=== PATIENT | male | born 1975 | race Caucasian/White ===

== ENCOUNTER 2017-03-05 18:28 | Observation (INO) | payer MEDICAID ==
[~2017-03-05] VITALS: Ht 170.2 cm; Wt 83.0 kg
[~2017-03-05 18:28] MED LIST: BUPR200T2 PO; ESCI20TA10 PO; HYDR50TA13 PO; QUET100T PO; QUET400T4 PO
[2017-03-05] MEDS ORDERED: ZIPRASIDONE 20 MG INJ IM ONE ×3 (18:50→19:00)
[2017-03-05 19:04] LABS: BLOOD UREA NITROGEN 17 mg/dL (7-18)
[2017-03-05 19:07] LABS: ASPARTATE AMINO TRANSFERASE 16 U/L (15-37)
[2017-03-05 19:19] LABS: ACETAMINOPHEN < 2 mcg/mL (10-30)
[2017-03-05] MEDS ORDERED: LORazepam 1MG TABLET PO ONE (21:30)
[2017-03-05] MEDS ORDERED: LORazepam 1MG TABLET ONE (22:22)
[2017-03-06 04:21] LABS: DAU SCREEN DISCLAIMER
[2017-03-06] MEDS ORDERED: hydrOXyzine 50MG TABLET PO PRN (04:30)
[2017-03-06] MEDS ORDERED: ACETAMINOPHEN 325 MG TABLET PO PRN (04:30)
[2017-03-06] MEDS ORDERED: ONDANSETRON ODT 4 MG PO PRN (04:30)
[2017-03-06] MEDS ORDERED: ZIPRASIDONE 20 MG INJ IM PRN (04:30)
[2017-03-06] MEDS: CITALOPRAM 20 MG TABLET PO SCH (14:32)
[2017-03-06] MEDS: FOLIC ACID 1 MG TABLET PO SCH (14:32)
[2017-03-06] MEDS: CYANOCOBALAMIN 1,000 MCG TABLET PO SCH (14:32)
[2017-03-06] MEDS: MULTIVITAMIN 1 TABLET PO SCH (14:32)
[2017-03-06] MEDS ORDERED: THIAMINE 100MG TABLET ONE (14:43)
[2017-03-06] MEDS: BUPROPION SR 150 MG TABLET PO SCH (15:07)
[2017-03-06] MEDS: THIAMINE 100MG TABLET PO SCH (15:07)
[2017-03-06] MEDS: QUETIAPINE 25MG TABLET PO SCH (22:08)
[2017-03-07] MEDS: MULTIVITAMIN 1 TABLET PO SCH (09:00)
[2017-03-07] MEDS: BUPROPION SR 150 MG TABLET PO SCH (09:00)
[2017-03-07] MEDS: FOLIC ACID 1 MG TABLET PO SCH (09:00)
[2017-03-07] MEDS: CYANOCOBALAMIN 1,000 MCG TABLET PO SCH (09:00)
[2017-03-07] MEDS: CITALOPRAM 20 MG TABLET PO SCH (09:00)
[2017-03-07 16:13] VITALS: BP 133/86
[2017-03-07 19:33] VITALS: BP 151/100
[2017-03-07 20:25] VITALS: BP 141/80
[2017-03-07] MEDS: QUETIAPINE 25MG TABLET PO SCH (20:27)
[2017-03-07] MEDS: LORazepam 1MG TABLET PO PRN (20:27)
[2017-03-07] MEDS: THIAMINE 100MG TABLET PO SCH (20:27)
[2017-03-08 08:24] VITALS: BP 120/76
[2017-03-08] MEDS: BUPROPION SR 150 MG TABLET PO SCH (09:58)
[2017-03-08] MEDS: THIAMINE 100MG TABLET PO SCH (09:58)
[2017-03-08] MEDS: MULTIVITAMIN 1 TABLET PO SCH (09:58)
[2017-03-08] MEDS: FOLIC ACID 1 MG TABLET PO SCH (09:58)
[2017-03-08] MEDS: CYANOCOBALAMIN 1,000 MCG TABLET PO SCH (09:59)
[2017-03-08] MEDS: CITALOPRAM 20 MG TABLET PO SCH (10:01)
[2017-03-08 19:50] VITALS: BP 139/83
[2017-03-08] MEDS: QUETIAPINE 25MG TABLET PO SCH (20:42)
[2017-03-08] MEDS: LORazepam 1MG TABLET PO PRN (20:42)
[2017-03-09] MEDS: THIAMINE 100MG TABLET PO SCH (08:02)
[2017-03-09] MEDS: CITALOPRAM 20 MG TABLET PO SCH (08:02)
[2017-03-09] MEDS: MULTIVITAMIN 1 TABLET PO SCH (08:02)
[2017-03-09] MEDS: FOLIC ACID 1 MG TABLET PO SCH (08:02)
[2017-03-09] MEDS: CYANOCOBALAMIN 1,000 MCG TABLET PO SCH (08:03)
[2017-03-09] MEDS: BUPROPION SR 150 MG TABLET PO SCH (08:03)
[2017-03-09 08:26] VITALS: BP 118/75
[2017-03-09 20:02] VITALS: BP 153/87
[2017-03-09] MEDS: LORazepam 1MG TABLET PO PRN (20:24)
[2017-03-09] MEDS: QUETIAPINE 100MG TABLET PO SCH (20:24)
[2017-03-09] MEDS ORDERED: QUETIAPINE 25MG TABLET PO SCH (21:00)
[2017-03-09 23:53] VITALS: BP 110/71
[2017-03-10] MEDS: FOLIC ACID 1 MG TABLET PO SCH (07:58)
[2017-03-10] MEDS: THIAMINE 100MG TABLET PO SCH (07:58)
[2017-03-10] MEDS: CYANOCOBALAMIN 1,000 MCG TABLET PO SCH (07:59)
[2017-03-10] MEDS: MULTIVITAMIN 1 TABLET PO SCH (07:59)
[2017-03-10] MEDS: BUPROPION SR 150 MG TABLET PO SCH (07:59)
[2017-03-10] MEDS: CITALOPRAM 20 MG TABLET PO SCH (07:59)
[2017-03-10 08:14] VITALS: BP 124/78
[2017-03-10 19:54] VITALS: BP 123/85
[2017-03-10] MEDS: LORazepam 1MG TABLET PO PRN (20:43)
[2017-03-10] MEDS: QUETIAPINE 100MG TABLET PO SCH (20:43)
[2017-03-11] MEDS: FOLIC ACID 1 MG TABLET PO SCH (07:44)
[2017-03-11] MEDS: THIAMINE 100MG TABLET PO SCH (07:44)
[2017-03-11] MEDS: MULTIVITAMIN 1 TABLET PO SCH (07:44)
[2017-03-11] MEDS: BUPROPION SR 150 MG TABLET PO SCH (07:44)
[2017-03-11] MEDS: CYANOCOBALAMIN 1,000 MCG TABLET PO SCH (07:45)
[2017-03-11] MEDS: CITALOPRAM 20 MG TABLET PO SCH (07:45)
[2017-03-11 08:33] VITALS: BP 112/72
== END 2017-03-11 12:53 ==
LOC: ED 20:24 → SUATTDRO 03-06 04:11 → EDIP 03-06 04:16 → 3E 03-07 16:10
DX: F23 Brief psychotic disorder (principal); R45.851 Suicidal ideations; G93.40 Encephalopathy, unspecified; F31.9 Bipolar disorder, unspecified; F10.10 Alcohol abuse, uncomplicated; F17.200 Nicotine dependence, unspecified, uncomplicated; F15.10 Other stimulant abuse, uncomplicated; F12.10 Cannabis abuse, uncomplicated
CPT/HCPCS: 36415; 80053; 80307; 80329; 83735; 85025; 96372; 99285; G0378; J3486; G0480

== ENCOUNTER 2017-06-23 00:01 | Observation (INO) | payer MEDICAID ==
[~2017-06-23] VITALS: Ht 170.2 cm; Wt 76.6 kg
[2017-06-23 00:40] LABS: HEMATOCRIT 46.8 % (39.2-51.8); HEMOGLOBIN 16.2 g/dL (13.7-18.0)
[2017-06-23 00:51] LABS: ASPARTATE AMINO TRANSFERASE 18 U/L (15-37); BLOOD UREA NITROGEN 25 mg/dL (7-18)
[2017-06-23 00:52] LABS: DAU SCREEN DISCLAIMER
[2017-06-23 00:53] LABS: ACETAMINOPHEN < 2 mcg/mL (10-30)
[2017-06-23] MEDS ORDERED: DOCUSATE 100 MG CAPSULE PO PRN (07:30)
[2017-06-23] MEDS ORDERED: LORazepam 2 MG/ML, 1ML IM PRN ×2 (07:30)
[2017-06-23] MEDS ORDERED: ONDANSETRON ODT 4 MG PO PRN (07:30)
[2017-06-23] MEDS ORDERED: BISACODYL 10 MG SUPP PR PRN (07:30)
[2017-06-23] MEDS ORDERED: NICOTINE 21 MG/24 HR PATCH.TD24 TD SCH (07:30)
[2017-06-23] MEDS ORDERED: POLYETHYLENE GLYCOL 17 GM PACKET PO PRN (07:30)
[2017-06-23] MEDS ORDERED: ACETAMINOPHEN 325 MG TABLET PO PRN (07:30)
[2017-06-23] MEDS ORDERED: ESCITALOPRAM OXALATE 20 MG PO SCH (09:00)
[2017-06-23 09:03] VITALS: BP 135/77
[2017-06-23] MEDS: MULTIVITAMIN 1 TABLET PO SCH (09:59)
[2017-06-23] MEDS: CYANOCOBALAMIN 1,000 MCG TABLET PO SCH (10:00)
[2017-06-23] MEDS: FOLIC ACID 1 MG TABLET PO SCH (10:00)
[2017-06-23] MEDS: CITALOPRAM 20 MG TABLET PO SCH (16:08)
[2017-06-23] MEDS ORDERED: FLU VACC QS2017-18 (36MOS+) UP/PF 0.5 ML IM-VACC ONE (18:00)
[2017-06-23 19:30] VITALS: BP 151/84
[2017-06-23] MEDS ORDERED: QUETIAPINE 100MG TABLET ONE (19:31)
[2017-06-23] MEDS: QUETIAPINE 100MG TABLET PO SCH (20:30)
[2017-06-24 08:32] VITALS: BP 147/98
[2017-06-24] MEDS: FOLIC ACID 1 MG TABLET PO SCH (08:33)
[2017-06-24] MEDS: MULTIVITAMIN 1 TABLET PO SCH (08:33)
[2017-06-24] MEDS: NICOTINE 21 MG/24 HR PATCH.TD24 TD SCH (08:33)
[2017-06-24] MEDS: CYANOCOBALAMIN 1,000 MCG TABLET PO SCH (08:33)
[2017-06-24] MEDS: CITALOPRAM 20 MG TABLET PO SCH (08:38)
[2017-06-24 19:38] VITALS: BP 153/81
[2017-06-24] MEDS: LORazepam 1MG TABLET PO PRN (20:53)
[2017-06-24] MEDS: QUETIAPINE 100MG TABLET PO SCH (20:54)
[2017-06-25 08:00] VITALS: BP 131/83
[2017-06-25] MEDS: CITALOPRAM 20 MG TABLET PO SCH (09:58)
[2017-06-25] MEDS: FOLIC ACID 1 MG TABLET PO SCH (09:58)
[2017-06-25] MEDS: CYANOCOBALAMIN 1,000 MCG TABLET PO SCH (09:58)
[2017-06-25] MEDS: NICOTINE 21 MG/24 HR PATCH.TD24 TD SCH (09:58)
[2017-06-25] MEDS: MULTIVITAMIN 1 TABLET PO SCH (09:58)
[2017-06-25 19:20] VITALS: BP 126/76
[2017-06-25] MEDS: LORazepam 1MG TABLET PO PRN (19:41)
[2017-06-25] MEDS: QUETIAPINE 100MG TABLET PO SCH (20:05)
[2017-06-26 08:08] VITALS: BP 136/87
[2017-06-26] MEDS: FOLIC ACID 1 MG TABLET PO SCH (08:45)
[2017-06-26] MEDS: CYANOCOBALAMIN 1,000 MCG TABLET PO SCH (08:45)
[2017-06-26] MEDS: MULTIVITAMIN 1 TABLET PO SCH (08:45)
[2017-06-26] MEDS: CITALOPRAM 20 MG TABLET PO SCH (08:45)
[2017-06-26] MEDS: NICOTINE 21 MG/24 HR PATCH.TD24 TD SCH (08:46)
[2017-06-26] MEDS: THIAMINE 100MG TABLET PO SCH (13:39)
[2017-06-26] MEDS: LORazepam 1MG TABLET PO PRN ×2 (14:07→20:07)
[2017-06-26 19:55] VITALS: BP 133/83
[2017-06-26] MEDS: QUETIAPINE 100MG TABLET PO SCH (19:57)
[2017-06-27 08:00] VITALS: BP 119/86
[2017-06-27] MEDS: MULTIVITAMIN 1 TABLET PO SCH (08:13)
[2017-06-27] MEDS: CITALOPRAM 20 MG TABLET PO SCH (08:13)
[2017-06-27] MEDS: FOLIC ACID 1 MG TABLET PO SCH (08:13)
[2017-06-27] MEDS: THIAMINE 100MG TABLET PO SCH (08:13)
[2017-06-27] MEDS: NICOTINE 21 MG/24 HR PATCH.TD24 TD SCH (08:14)
[2017-06-27] MEDS: CYANOCOBALAMIN 1,000 MCG TABLET PO SCH (09:37)
[2017-06-27] MEDS: LORazepam 1MG TABLET PO PRN ×2 (09:44→20:21)
[2017-06-27 19:20] VITALS: BP 126/83
[2017-06-27] MEDS: QUETIAPINE 100MG TABLET PO SCH (20:10)
[2017-06-28 07:50] VITALS: BP 141/83
[2017-06-28] MEDS: THIAMINE 100MG TABLET PO SCH (08:12)
[2017-06-28] MEDS: FOLIC ACID 1 MG TABLET PO SCH (08:12)
[2017-06-28] MEDS: MULTIVITAMIN 1 TABLET PO SCH (08:12)
[2017-06-28] MEDS: CITALOPRAM 20 MG TABLET PO SCH (08:12)
[2017-06-28] MEDS: NICOTINE 21 MG/24 HR PATCH.TD24 TD SCH (08:13)
[2017-06-28] MEDS: CYANOCOBALAMIN 1,000 MCG TABLET PO SCH (10:27)
[2017-06-28] MEDS: LORazepam 1MG TABLET PO PRN ×2 (11:16→20:29)
[2017-06-28] MEDS: QUETIAPINE 100MG TABLET PO SCH (20:30)
[2017-06-28 20:32] VITALS: BP 141/91
[2017-06-29 07:32] VITALS: BP 123/79
[2017-06-29] MEDS: CYANOCOBALAMIN 1,000 MCG TABLET PO SCH (08:55)
[2017-06-29] MEDS: CITALOPRAM 20 MG TABLET PO SCH (08:55)
[2017-06-29] MEDS: FOLIC ACID 1 MG TABLET PO SCH (08:55)
[2017-06-29] MEDS: THIAMINE 100MG TABLET PO SCH (08:55)
[2017-06-29] MEDS: NICOTINE 21 MG/24 HR PATCH.TD24 TD SCH (08:55)
[2017-06-29] MEDS: MULTIVITAMIN 1 TABLET PO SCH (08:55)
[2017-06-29] MEDS: LORazepam 1MG TABLET PO PRN ×2 (09:31→20:15)
[2017-06-29 19:10] VITALS: BP 127/86
[2017-06-29] MEDS: QUETIAPINE 100MG TABLET PO SCH (20:11)
[2017-06-30 07:58] VITALS: BP 123/84
[2017-06-30] MEDS: CITALOPRAM 20 MG TABLET PO SCH (08:33)
[2017-06-30] MEDS: MULTIVITAMIN 1 TABLET PO SCH (08:33)
[2017-06-30] MEDS: THIAMINE 100MG TABLET PO SCH (08:33)
[2017-06-30] MEDS: NICOTINE 21 MG/24 HR PATCH.TD24 TD SCH (08:34)
[2017-06-30] MEDS: LORazepam 1MG TABLET PO PRN ×2 (08:51→20:35)
[2017-06-30] MEDS ORDERED: DOCUSATE 100 MG CAPSULE PO PRN (16:00)
[2017-06-30] MEDS ORDERED: POLYETHYLENE GLYCOL 17 GM PACKET PO PRN (16:00)
[2017-06-30] MEDS ORDERED: BISACODYL 10 MG SUPP PR PRN (16:00)
[2017-06-30] MEDS ORDERED: LORazepam 2 MG/ML, 1ML IM PRN ×2 (16:00)
[2017-06-30] MEDS ORDERED: ONDANSETRON ODT 4 MG PO PRN (16:00)
[2017-06-30] MEDS ORDERED: ACETAMINOPHEN 325 MG TABLET PO PRN (16:00)
[2017-06-30 20:02] VITALS: BP 135/88
[2017-06-30] MEDS: QUETIAPINE 100MG TABLET PO SCH (20:35)
[2017-07-01 08:10] VITALS: BP 130/85
[2017-07-01] MEDS: NICOTINE 21 MG/24 HR PATCH.TD24 TD SCH (08:41)
[2017-07-01] MEDS: CITALOPRAM 20 MG TABLET PO SCH (08:41)
[2017-07-01] MEDS: MULTIVITAMIN 1 TABLET PO SCH (08:41)
[2017-07-01] MEDS: THIAMINE 100MG TABLET PO SCH (08:41)
[2017-07-01] MEDS: LORazepam 1MG TABLET PO PRN ×2 (09:05→20:11)
[2017-07-01 19:23] VITALS: BP 127/82
[2017-07-01] MEDS: QUETIAPINE 100MG TABLET PO SCH (20:11)
== END 2017-07-02 02:17 ==
LOC: ED 00:54 → EDIP 06:32 → 3E 08:41
PROVIDERS: ADMIT Hospitalist; ATTEND Family Medicine
DX: F31.9 Bipolar disorder, unspecified (principal); D72.829 Elevated white blood cell count, unspecified; F10.239 Alcohol dependence with withdrawal, unspecified; F12.90 Cannabis use, unspecified, uncomplicated; R45.851 Suicidal ideations; F17.200 Nicotine dependence, unspecified, uncomplicated; Z23 Encounter for immunization; Z59.0 Homelessness; Z91.19 Patient's noncompliance with other medical treatment and regimen
CPT/HCPCS: 36415; 80053; 80307; 80329; 85025; 90471; 90686; 99285; G0378; G0479; G0480

== ENCOUNTER 2017-09-13 22:25 | Emergency (ER) | payer MEDICAID ==
[~2017-09-13] VITALS: Ht 185.4 cm; Wt 89.0 kg
[2017-09-13] MEDS ORDERED: ZIPRASIDONE 20 MG INJ IM ONE ×2 (22:44→23:00)
[2017-09-13 23:32] LABS: BASOPHILS # (AUTO) 0.05 x10^3/uL (0-0.1); BASOPHILS % (AUTO) 1 % (0-1); EOSINOPHILS # (AUTO) 0.18 x10^3/uL (0-0.4); EOSINOPHILS % (AUTO) 3 % (1-7); LYMPHOCYTES # (AUTO) 2.83 x10^3/uL (1-3.4); LYMPHOCYTES % (AUTO) 45 % (22-44); MD NO; MEAN CORPUSCULAR HEMOGLOBIN 30.4 pg (27.5-34.5); MEAN CORPUSCULAR HGB CONC 33.7 g/dL (33.2-36.2); MEAN PLATELET VOLUME 8.9 fL (7.4-10.4); MONOCYTES # (AUTO) 0.31 x10^3/uL (0.2-0.8); MONOCYTES % (AUTO) 5 % (2-9); NEUTROPHILS # (AUTO) 2.94 x10^3/uL (1.8-6.8); NEUTROPHILS % (AUTO) 47 % (42-75); PLATELET COUNT 264 x10^3/uL (130-400); RED CELL DISTRIBUTION WIDTH 13.6 % (9.4-14.8)
[2017-09-13 23:41] LABS: ALBUMIN 3.5 g/dL (3.4-5.0); ANION GAP 10 mmol/L (5-15); CALCIUM 8.4 mg/dL (8.5-10.1); CHLORIDE 110 mmol/L (98-107)
[2017-09-13 23:42] LABS: SALICYLATE LEVEL < 1.7 mg/dL (2.8-20.0)
[2017-09-13 23:44] LABS: ACETAMINOPHEN < 2 mcg/mL (10-30); ALANINE AMINOTRANSFERASE 26 U/L (12-78); ALKALINE PHOSPHATASE 71 U/L (45-117); BILIRUBIN,TOTAL 0.3 mg/dL (0.2-1.0); CREATININE 0.75 mg/dL (0.7-1.3); TOTAL PROTEIN 7.3 g/dL (6.4-8.2)
[2017-09-14] MEDS ORDERED: ZIPRASIDONE 20 MG INJ IM ONE ×2 (05:07→05:30)
[2017-09-14 09:44] VITALS: BP 132/88
[2017-09-14 10:30] LABS: MICROSCOPIC NOT IND
[2017-09-14 10:34] LABS: CULTURE INDICATED? NO
[2017-09-14 10:42] LABS: AMPHETAMINE SCREEN, URINE Positive (Negative); BARBITURATE SCREEN, URINE Negative (Negative); BENZODIAZEPINE SCREEN, URINE Negative (Negative); CANNABINOID SCREEN, URINE Positive (Negative); COCAINE SCREEN, URINE Negative (Negative); METHADONE SCREEN, URINE Negative (Negative); OPIATE SCREEN, URINE Negative (Negative)
== END 2017-09-14 11:18 | disposition home or self-care (01) ==
LOC: ED 22:28
DX: F32.0 Major depressive disorder, single episode, mild (principal); R45.851 Suicidal ideations; F20.9 Schizophrenia, unspecified
CPT/HCPCS: 36415; 80053; 80307; 80329; 81003; 85025; 86703; 86705; 86706; 86803; 87340; 87899; 93005; 96372; 99285; J3486; G0435; G0479; G0480

== ENCOUNTER 2017-10-29 00:25 | Observation (INO) | payer MEDICAID ==
[~2017-10-29] VITALS: Ht 170.2 cm; Wt 78.3 kg
[2017-10-29 01:15] LABS: ALBUMIN 3.3 g/dL (3.4-5.0); ANION GAP 6 mmol/L (5-15); CALCIUM 8.2 mg/dL (8.5-10.1); CHLORIDE 104 mmol/L (98-107)
[2017-10-29 01:18] LABS: ACETAMINOPHEN < 2 mcg/mL (10-30); ALANINE AMINOTRANSFERASE 22 U/L (12-78); ALKALINE PHOSPHATASE 64 U/L (45-117); BILIRUBIN,TOTAL 0.3 mg/dL (0.2-1.0); SALICYLATE LEVEL < 1.7 mg/dL (2.8-20.0)
[2017-10-29 01:19] LABS: BASOPHILS # (AUTO) 0.03 x10^3/uL (0-0.1); BASOPHILS % (AUTO) 1 % (0-1); EOSINOPHILS # (AUTO) 0.29 x10^3/uL (0-0.4); EOSINOPHILS % (AUTO) 4 % (1-7); LYMPHOCYTES # (AUTO) 2.33 x10^3/uL (1-3.4); LYMPHOCYTES % (AUTO) 31 % (22-44); MD NO; MEAN CORPUSCULAR HEMOGLOBIN 30.9 pg (27.5-34.5); MEAN CORPUSCULAR HGB CONC 34.5 g/dL (33.2-36.2); MEAN CORPUSCULAR VOLUME 89.5 fL (81-97); MEAN PLATELET VOLUME 9.4 fL (7.4-10.4); MONOCYTES # (AUTO) 0.42 x10^3/uL (0.2-0.8); MONOCYTES % (AUTO) 6 % (2-9); NEUTROPHILS # (AUTO) 4.37 x10^3/uL (1.8-6.8); NEUTROPHILS % (AUTO) 59 % (42-75); PLATELET COUNT 255 x10^3/uL (130-400); RED BLOOD COUNT 4.99 x10^6/uL (4.38-5.82)
[2017-10-29 02:40] LABS: AMPHETAMINE SCREEN, URINE Negative (Negative); BARBITURATE SCREEN, URINE Negative (Negative); BENZODIAZEPINE SCREEN, URINE Negative (Negative); CANNABINOID SCREEN, URINE Positive (Negative); COCAINE SCREEN, URINE Negative (Negative); METHADONE SCREEN, URINE Negative (Negative); OPIATE SCREEN, URINE Negative (Negative)
[2017-10-29] MEDS ORDERED: ONDANSETRON ODT 4 MG PO PRN (04:30)
[2017-10-29] MEDS ORDERED: LABETALOL 5MG/ML, 20ML IVPush PRN (04:30)
[2017-10-29] MEDS ORDERED: TEMAZEPAM 15 MG CAPSULE PO PRN (04:30)
[2017-10-29] MEDS ORDERED: ACETAMINOPHEN 325 MG TABLET PO PRN (04:30)
[2017-10-29] MEDS ORDERED: LORazepam 1MG TABLET PO PRN (04:30)
[2017-10-29] MEDS ORDERED: NICOTINE 21 MG/24 HR PATCH.TD24 TD SCH (04:30)
[2017-10-29] MEDS ORDERED: hydrOXyzine 50MG TABLET PO PRN (04:30)
[2017-10-29] MEDS ORDERED: FAMOTIDINE 20 MG TABLET PO SCH (09:00)
[2017-10-29] MEDS ORDERED: CITALOPRAM 20 MG TABLET PO SCH (09:00)
[2017-10-29] MEDS ORDERED: OLANZAPINE 10 MG TABLET PO SCH (09:00)
[2017-10-29] MEDS ORDERED: OLANZAPINE 10 MG TABLET ONE (09:57)
[2017-10-29] MEDS ORDERED: FAMOTIDINE 20 MG TABLET ONE (09:57)
[2017-10-29 17:08] VITALS: BP 139/78
== END 2017-10-29 18:16 ==
LOC: ED 04:25 → EDIP 04:29
PROVIDERS: ADMIT Internal Medicine; ATTEND Internal Medicine
DX: R45.851 Suicidal ideations (principal); F32.9 Major depressive disorder, single episode, unspecified; F20.9 Schizophrenia, unspecified; F15.90 Other stimulant use, unspecified, uncomplicated; F17.210 Nicotine dependence, cigarettes, uncomplicated
CPT/HCPCS: 36415; 80053; 80307; 80329; 85025; 99285; G0378; G0480

== ENCOUNTER 2017-11-09 03:25 | Emergency (ER) | payer MEDICAID ==
[~2017-11-09] VITALS: Ht 167.6 cm; Wt 87.1 kg
[2017-11-09 03:26] VITALS: BP 136/88
[2017-11-09] MEDS ORDERED: CITA40TA12 PO (11:07)
== END 2017-11-09 03:51 | disposition left against medical advice (07) ==
LOC: ED 03:45
DX: R45.851 Suicidal ideations (principal); Z53.21 Procedure and treatment not carried out due to patient leaving prior to being seen by health care provider

== ENCOUNTER 2017-11-09 08:19 | Emergency (ER) | payer MEDICAID ==
[~2017-11-09] VITALS: Ht 167.6 cm; Wt 84.1 kg
[2017-11-09 08:21] VITALS: BP 138/84
[2017-11-09 09:16] LABS: BASOPHILS # (AUTO) 0.03 x10^3/uL (0-0.1); BASOPHILS % (AUTO) 1 % (0-1); EOSINOPHILS # (AUTO) 0.29 x10^3/uL (0-0.4); EOSINOPHILS % (AUTO) 4 % (1-7); LYMPHOCYTES # (AUTO) 1.56 x10^3/uL (1-3.4); LYMPHOCYTES % (AUTO) 24 % (22-44); MD NO; MEAN CORPUSCULAR HEMOGLOBIN 30.7 pg (27.5-34.5); MEAN CORPUSCULAR VOLUME 90.1 fL (81-97); MEAN PLATELET VOLUME 9.5 fL (7.4-10.4); MONOCYTES # (AUTO) 0.54 x10^3/uL (0.2-0.8); MONOCYTES % (AUTO) 8 % (2-9); NEUTROPHILS # (AUTO) 4.18 x10^3/uL (1.8-6.8); NEUTROPHILS % (AUTO) 63 % (42-75); PLATELET COUNT 257 x10^3/uL (130-400); RED BLOOD COUNT 4.33 x10^6/uL (4.38-5.82); RED CELL DISTRIBUTION WIDTH 13.2 % (9.4-14.8)
[2017-11-09 09:27] LABS: ALANINE AMINOTRANSFERASE 63 U/L (12-78); ALBUMIN 3.2 g/dL (3.4-5.0); ANION GAP 8 mmol/L (5-15); CALCIUM 7.8 mg/dL (8.5-10.1); CHLORIDE 108 mmol/L (98-107); CREATININE 0.91 mg/dL (0.7-1.3)
[2017-11-09 09:32] LABS: SALICYLATE LEVEL < 1.7 mg/dL (2.8-20.0)
[2017-11-09 09:35] LABS: ACETAMINOPHEN < 2 mcg/mL (10-30); ALKALINE PHOSPHATASE 67 U/L (45-117); BILIRUBIN,TOTAL 0.5 mg/dL (0.2-1.0); TOTAL PROTEIN 6.5 g/dL (6.4-8.2)
[2017-11-09 10:59] LABS: AMPHETAMINE SCREEN, URINE Positive (Negative); BARBITURATE SCREEN, URINE Negative (Negative); BENZODIAZEPINE SCREEN, URINE Negative (Negative); CANNABINOID SCREEN, URINE Positive (Negative); COCAINE SCREEN, URINE Negative (Negative); METHADONE SCREEN, URINE Negative (Negative); OPIATE SCREEN, URINE Negative (Negative)
[2017-11-09] MEDS ORDERED: CITA40TA12 PO (11:07)
== END 2017-11-09 12:29 | disposition home or self-care (01) ==
LOC: ED 09:06
DX: R45.851 Suicidal ideations (principal); F32.9 Major depressive disorder, single episode, unspecified; F10.20 Alcohol dependence, uncomplicated; F15.10 Other stimulant abuse, uncomplicated; F20.9 Schizophrenia, unspecified; Z76.0 Encounter for issue of repeat prescription; Z72.89 Other problems related to lifestyle; Z72.0 Tobacco use
CPT/HCPCS: 36415; 80053; 80307; 80329; 85025; 93005; 99285; G0480

== ENCOUNTER 2020-09-10 15:15 | Emergency (ER) | payer MEDICAID, OTHER ==
[~2020-09-10] VITALS: Ht 170.2 cm; Wt 72.0 kg
[~2020-09-10 15:15] MED LIST changes: +CITA40TA12 PO; -HYDR50TA13 PO; +HYDR50TA99 PO
--- NOTE | 2020-09-10 15:36 | NUR ---
PT BIB EMS FOR RIGHT HAND SWELLING AND PAIN. PT DENIES TRAUMA. PT POOR HISTORIAN
[2020-09-10 16:21] LABS: BASOPHILS % (AUTO) 0 % (0-1); EOSINOPHILS % (AUTO) 0 % (1-7); LYMPHOCYTES % (AUTO) 7 % (22-44); MEAN CORPUSCULAR HEMOGLOBIN 30.2 pg (27.5-34.5); MEAN CORPUSCULAR HGB CONC 34.5 g/dL (33.2-36.2); MEAN PLATELET VOLUME 9.4 fL (7.4-10.4); MONOCYTES % (AUTO) 5 % (2-9); NEUTROPHILS % (AUTO) 88 % (42-75); PLATELET COUNT 285 x10^3/uL (130-400); RED BLOOD COUNT 4.76 x10^6/uL (4.38-5.82); RED CELL DISTRIBUTION WIDTH 13.6 % (9.4-14.8)
[2020-09-10 16:26] LABS: ALBUMIN 3.7 g/dL (3.4-5.0); ANION GAP 8 mmol/L (5-15); CALCIUM 8.6 mg/dL (8.5-10.1); CHLORIDE 104 mmol/L (98-107); CREATININE 1.16 mg/dL (0.7-1.3)
[2020-09-10 16:44] LABS: MD SCAN
[2020-09-10] MEDS ORDERED: CEFTRIAXONE 1,000 MG IM ONE (17:00)
[2020-09-10] MEDS ORDERED: CEFTRIAXONE 1,000 MG ONE (17:11)
[2020-09-10 17:19] VITALS: BP 110/86
== END 2020-09-10 18:54 ==
LOC: ED 17:27
DX: S60.222A Contusion of left hand, initial encounter (principal); L03.114 Cellulitis of left upper limb; W22.8XXA Striking against or struck by other objects, initial encounter; Y93.89 Activity, other specified; Y92.410 Unspecified street and highway as the place of occurrence of the external cause; Y99.8 Other external cause status
CPT/HCPCS: 29125; 36415; 73130; 80048; 82040; 85025; 96372; 99284; J0696

== ENCOUNTER 2020-09-13 18:20 | Emergency (ER) | payer MEDICAID ==
[~2020-09-13] VITALS: Ht 167.6 cm; Wt 71.0 kg
[2020-09-13 18:44] VITALS: BP 159/109
[2020-09-13] MEDS ORDERED: LIDOCAINE-MPF 1%, 5ML ONE (19:22)
[2020-09-13] MEDS ORDERED: CEFTRIAXONE 1,000 MG IM ONE (20:00)
[2020-09-13] MEDS ORDERED: CEFTRIAXONE 1,000 MG ONE (20:28)
--- NOTE | 2020-09-13 20:39 | NUR ---
PT EDUCATED THAT HE COULD LOSE HIS HAND IF HE DOESNT GET THE MEDICINE. PT STATES "MY HAND WILL BE FINE"
--- NOTE | 2020-09-13 20:39 | NUR ---
PT REFUSING ROCEHPIN INJECTION. "NO, THATS TOO PAINFUL. IM JUST GOING TO LEAVE. I HAVE TO GO. IM LEAVING"
== END 2020-09-13 20:57 | disposition home or self-care (01) ==
LOC: ED 18:50
DX: S60.512A Abrasion of left hand, initial encounter (principal); L03.114 Cellulitis of left upper limb; Z87.891 Personal history of nicotine dependence; X58.XXXA Exposure to other specified factors, initial encounter; Y93.89 Activity, other specified; Y92.098 Other place in other non-institutional residence as the place of occurrence of the external cause; Y99.8 Other external cause status
CPT/HCPCS: 10060; 99283; J0696

== ENCOUNTER 2021-04-26 17:59 | Emergency (ER) | payer MEDICAID ==
[~2021-04-26] VITALS: Ht 170.2 cm; Wt 88.0 kg
[2021-04-26 18:04] VITALS: BP 153/71
--- NOTE | 2021-04-26 18:30 | NUR ---
architecture analyst completed. Pt with clean, dry dsg to L forearm and thumb placed a couple of hours ago by family per pt. Pt with flat, somewhat argumentative affect, avoids eye contact, healing scab to R side of face at [place] noted, and pt asking why dsg would have to come off for assessment and why can't we just give him abx. Pt education on need for PA at minimum to assess wound to ensure no further cleaning or care is needed in addition to possible abx. Pt was not thrilled with this but agreed to have him look. Son is at bedside with pt at this time.
--- NOTE | 2021-04-26 18:34 | NUR ---
PA notified to call RN to bedside for wound assessment when he goes in for assessment.
[2021-04-26] MEDS ORDERED: L.E.T SOLUTION TP ONE ×2 (18:45→19:00)
--- NOTE | 2021-04-26 19:15 | NUR ---
Wound irrigated, pat dry, and steristrips applied as ordered. Covered with gauze roll per pt request.
== END 2021-04-26 20:18 | disposition home or self-care (01) ==
LOC: ED 18:29
DX: S61.012A Laceration without foreign body of left thumb without damage to nail, initial encounter (principal); F10.20 Alcohol dependence, uncomplicated; Z59.0 Homelessness; Y90.0 Blood alcohol level of less than 20 mg/100 ml; Z72.9 Problem related to lifestyle, unspecified; W45.8XXA Other foreign body or object entering through skin, initial encounter; Y93.89 Activity, other specified; Y92.410 Unspecified street and highway as the place of occurrence of the external cause; Y99.8 Other external cause status
CPT/HCPCS: 99283